=== PATIENT | female | born 1985 | race African-American/Black ===

== ENCOUNTER 2017-01-20 10:09 | Emergency (ER) | payer SELFPAY ==
[~2017-01-20 10:09] MED LIST: ISOVUE-370 76%-LOCM 1 ML ONE
[2017-01-20 10:36] LABS: #Lymphocytes 1.9 thou/uL (1.20-3.40); #Monocytes 0.4 thou/uL (0.11-0.59); #Neutrophils 12.4 thou/uL (1.40-6.50); %Basophils 0.2 % (0.0-1.0); %Eosinophils 0.3 % (0.0-10.0); %Lymphocytes 12.7 % (21.0-51.0); %Monocytes 2.8 % (0.0-10.0); Hematocrit 42.2 % (36.0-47.0); Mean Platelet Volume 6.6 fL (7.4-10.4); Red Blood Cell (RBC) Count 4.02 mill/uL (4.20-5.40); White Blood Cell (WBC) Count 14.8 thou/uL (4.8-10.8)
[2017-01-20 10:59] LABS: ALT (SGPT) 10 U/L (8-55); AST (SGOT) 12 U/L (5-34); Alkaline Phosphatase 61 U/L (40-150); Anion Gap 12 mmol/L (10-20); BUN (Urea Nitrogen) 9 mg/dL (7.0-18.7); Bilirubin, Total 0.6 mg/dL (0.2-1.2); Calc. Creatinine Clearance 0 mL/min (70-130); Carbon Dioxide 22 mmol/L (22-29); Chloride 98 mmol/L (98-107); Estimated GFR-MDRD 83; Globulin 3.2 g/dL (2.4-3.5); Lipase 10 U/L (8-78); Protein, Total 6.5 g/dL (6.0-8.3)
[2017-01-20 11:32] LABS: Bilirubin Negative (Negative); Blood, Urine Negative (Negative); Glucose, Urine (Dipstick) 500 mg/dL (Negative); Ketone, Urine Trace mg/dL (Negative); Nitrite Negative (Negative); Protein, Urine (Dipstick) Negative (Neg-Trace)
[2017-01-20] MEDS ORDERED: Morphine 4 MG/ML VIAL ONE (11:58)
[2017-01-20] MEDS ORDERED: Ketorolac Tromethamine 30 MG/ML VIAL ONE (11:58)
--- NOTE | 2017-01-20 12:50 | CT ---
CT ABDOMEN AND PELVIS WITH IV CONTRAST: HISTORY: Abdominal pain. FINDINGS: No comparison. The lung bases are clear. The liver, spleen, kidneys, adrenal glands, and pancreas h ave a normal CT appearance. Nonspecific lymph nodes are scattered throughout the retroperitoneum. Lack of oral contrast limits evaluation of the bowel. There is no evidence of obstruction or appendi ceal inflammation. Follicles arise from each ovary with a small amount of free fluid in the dependen t portion of the pelvis. IMPRESSION: No significant abnormalities are demonstrated. POS: [facility]
--- NOTE | 2017-01-20 13:47 | ULT ---
PELVIC ULTRASOUND: Date: 01/20/17 Transabdominal and endovaginal ultrasound of pelvis performed. HISTORY: Pelvic pain. FINDINGS: Uterus appears unremarkable. Uterine measurements were recorded at 8.7 x 4.7 x 5[address] ripe upper normal measured at 6-8 mm. Both ovaries are identified. There are small follicular cysts seen bilaterally measuring 1.0-1.5 cm. Color Doppler with spectral analysis demonstrates blood flow to both ovaries. IMPRESSION: Unremarkable pelvic ultrasound. POS: [facility]
== END 2017-01-20 14:20 | disposition home or self-care (01) ==
LOC: ERS 10:09
DX: R10.30 Lower abdominal pain, unspecified (principal); F17.210 Nicotine dependence, cigarettes, uncomplicated
CPT/HCPCS: 36415; 74177; 76856; 80053; 81003; 83690; 84703; 85025; 96374; 96375; J1885; J2270

== ENCOUNTER 2017-04-27 09:15 | Emergency (ER) | payer BC, SELFPAY ==
[2017-04-27] MEDS ORDERED: HYDROcodone/Acetaminophen 10/325 mg Tablet ONE (09:49)
== END 2017-04-27 10:31 | disposition home or self-care (01) ==
LOC: ERS 09:15
DX: T81.4XXA Infection following a procedure, initial encounter (principal); K08.89 Other specified disorders of teeth and supporting structures; F17.210 Nicotine dependence, cigarettes, uncomplicated
CPT/HCPCS: 99282

== ENCOUNTER 2017-06-02 17:25 | Emergency (ER) | payer BC ==
[2017-06-02] MEDS ORDERED: diphenhydrAMINE 25 MG CAP ONE (18:14)
[2017-06-02] MEDS ORDERED: predniSONE 20 MG TAB ONE (18:14)
== END 2017-06-02 18:24 | disposition home or self-care (01) ==
LOC: SCSER 17:25
DX: L25.9 Unspecified contact dermatitis, unspecified cause (principal); F17.210 Nicotine dependence, cigarettes, uncomplicated
CPT/HCPCS: 99282; J7506

== ENCOUNTER 2017-12-13 22:50 | Emergency (ER) | payer BC, SELFPAY ==
--- NOTE | 2017-12-13 23:29 | RAD ---
CHEST TWO VIEWS: 12/13/17 INDICATION: Cough. Congestion, sore throat. COMPARISON: None. FINDINGS: Lungs are clear. Cardiomediastinal silhouette is normal. No acute osseous abnormality is evident. IMPRESSION: No acute cardiopulmonary abnormality. POS: [facility]
== END 2017-12-13 23:38 | disposition home or self-care (01) ==
LOC: ERS 22:50
DX: J30.9 Allergic rhinitis, unspecified (principal); R05 Cough; F17.210 Nicotine dependence, cigarettes, uncomplicated; Z71.6 Tobacco abuse counseling
CPT/HCPCS: 71046; 99406

== ENCOUNTER 2018-05-09 15:40 | Emergency (ER) | payer SELFPAY ==
[2018-05-09] MEDS ORDERED: Ibuprofen 600 MG TAB ONE (17:16)
[2018-05-09] MEDS ORDERED: Dexamethasone 4 MG TAB ONE (17:16)
== END 2018-05-09 17:34 | disposition home or self-care (01) ==
LOC: SCSER 15:40
DX: J11.1 Influenza due to unidentified influenza virus with other respiratory manifestations (principal); F17.210 Nicotine dependence, cigarettes, uncomplicated
CPT/HCPCS: 99283; J8540

== ENCOUNTER 2018-06-04 10:34 | Emergency (ER) | payer SELFPAY ==
[2018-06-04] MEDS ORDERED: Bacitracin Zinc 1 Packet ONE (12:17)
== END 2018-06-04 12:32 | disposition home or self-care (01) ==
LOC: ERS 10:34
DX: S91.311D Laceration without foreign body, right foot, subsequent encounter (principal); F17.210 Nicotine dependence, cigarettes, uncomplicated

== ENCOUNTER 2020-03-01 19:28 | Emergency (ER) | payer SELFPAY ==
--- NOTE | 2020-03-01 19:54 | RAD ---
TWO VIEWS CHEST: 03/01/20 PROVIDED CLINICAL HISTORY: Chest pain. FINDINGS: Comparison 12/13/17. Cardiac and mediastinal silhouette is within normal limits. No focal consolidation, pleural fluid or pneumothorax apparent. IMPRESSION: No evidence for an acute cardiopulmonary process. POS: [facility]
== END 2020-03-01 22:00 | disposition home or self-care (01) ==
LOC: ERS 19:28
DX: S20.211A Contusion of right front wall of thorax, initial encounter (principal); W19.XXXA Unspecified fall, initial encounter
CPT/HCPCS: 71046

== ENCOUNTER 2020-08-12 11:29 | Emergency (ER) | payer SELFPAY ==
[2020-08-12] MEDS ORDERED: Ketorolac Tromethamine 30 MG/ML VIAL ONE (13:13)
== END 2020-08-12 13:33 | disposition home or self-care (01) ==
LOC: ERS 11:29
DX: M25.562 Pain in left knee (principal); F17.210 Nicotine dependence, cigarettes, uncomplicated
CPT/HCPCS: 96372; J1885

== ENCOUNTER 2020-12-21 13:54 | Emergency (ER) | payer SELFPAY ==
[2020-12-21 22:40] LABS: SARS-CoV-2 PCR by NAA Not Detected (NotDetected)
== END 2020-12-21 14:32 | disposition home or self-care (01) ==
LOC: ERS 13:54
DX: R51.9 Headache, unspecified (principal); R05.9 Cough, unspecified; Z20.822 Contact with and (suspected) exposure to COVID-19; F17.210 Nicotine dependence, cigarettes, uncomplicated
CPT/HCPCS: 99284; U0003; U0005

== ENCOUNTER 2021-09-17 08:59 | Emergency (ER) | payer SELFPAY ==
[2021-09-17 13:35] LABS: SARS-CoV-2 NAA Rapid Test DETECTED (NotDetected)
== END 2021-09-17 10:27 | disposition home or self-care (01) ==
LOC: ERS 08:59
DX: U07.1 COVID-19 (principal); H60.501 Unspecified acute noninfective otitis externa, right ear; H72.91 Unspecified perforation of tympanic membrane, right ear; F17.210 Nicotine dependence, cigarettes, uncomplicated
CPT/HCPCS: 99283; U0002

== ENCOUNTER 2022-01-31 15:50 | Emergency (ER) | payer SELFPAY | END 2022-01-31 18:37 | disposition home or self-care (01) | LOC: ERS 15:50 | DX: S70.12XA Contusion of left thigh, initial encounter (principal); M54.2 Cervicalgia; M62.838 Other muscle spasm; F17.210 Nicotine dependence, cigarettes, uncomplicated; W18.30XA Fall on same level, unspecified, initial encounter | CPT/HCPCS: 99283 ==

== ENCOUNTER 2022-05-22 23:01 | Emergency (ER) | payer SELFPAY ==
[2022-05-22 23:29] LABS: #Eosinphils 0.3 thou/uL (0.0-0.7); #Lymphocytes 2.2 thou/uL (1.20-3.40); #Monocytes 0.5 thou/uL (0.11-0.59); #Neutrophils 2.5 thou/uL (1.40-6.50); %Basophils 0.8 % (0.0-1.0); %Lymphocytes 39.8 % (21.0-51.0); %Neutrophils 45.4 % (42.0-75.0); Hemoglobin 12.9 g/dL (12.0-16.0); Mean Corpuscular HGB CONC 32.8 g/dL (32.0-36.0); Mean Corpuscular Hemoglobin 33.1 pg (27.0-31.0); Mean Platelet Volume 6.7 fL (7.4-10.4); Platelet Count 503 10x3/uL (130-400); RBC Distribution Width 12.8 % (11.5-14.5); Red Blood Cell (RBC) Count 3.91 mill/uL (4.20-5.40); White Blood Cell (WBC) Count 5.5 10x3/uL (4.8-10.8)
[2022-05-22 23:54] LABS: Bilirubin Negative (Negative); Blood, Urine Negative (Negative); Clarity Clear (Clear); Glucose, Urine (Dipstick) Normal (Negative); Ketone, Urine Negative (Negative); Leukocyte Negative Leu/uL (Negative); Nitrite Negative (Negative); Pregnancy Test - Urine (BHCG) Negative (Negative); Pregu Control Background? CLEAR/WHITE (CLR/WHITE); Pregu Control Bar Appear? YES (CONTROL BAR); Protein, Urine (Dipstick) Negative (Neg-Trace); Urobilinogen Normal mg/dL (Less than 2)
[2022-05-23] LABS: ALT (SGPT) 19 U/L (8-55); AST (SGOT) 23 U/L (5-34); Albumin 3.5 g/dL (3.5-5.0); Alkaline Phosphatase 64 U/L (40-110); Anion Gap 12 mmol/L (10-20); BUN (Urea Nitrogen) 8 mg/dL (7.0-18.7); Bilirubin, Total 0.2 mg/dL (0.2-1.2); Calc. Creatinine Clearance 0 mL/min (70-130); Calcium 8.8 mg/dL (7.8-10.44); Carbon Dioxide 23 mmol/L (22-29); Chloride 108 mmol/L (98-107); Estimated GFR 89; Globulin 3.1 g/dL (2.4-3.5); Glucose 89 mg/dL (70-105); Potassium 3.9 mmol/L (3.5-5.1); Protein, Total 6.6 g/dL (6.0-8.3); Sodium 139 mmol/L (136-145)
[2022-05-23 00:12] LABS: BHCG - Serum Negative (NEGATIVE); Pregs Control Background? CLEAR/WHITE (CLR/WHITE); Pregs Control Bar Appear? YES (CONTROL BAR)
[2022-05-23] MEDS ORDERED: Dicyclomine 20 MG/2 ML VIAL ONE (01:45)
[2022-05-23] MEDS ORDERED: cefTRIAXone (ROCEPHIN) 500 MG VIAL ONE (01:58)
[2022-05-23] MEDS ORDERED: Lidocaine 1% MPF 2 ML VIAL ONE (01:58)
[2022-05-23 12:53] LABS: Chlamydia by PCR Not Detected (NotDetected); GC by PCR DETECTED (NotDetected)
== END 2022-05-23 02:26 | disposition home or self-care (01) ==
LOC: ERS 23:01
DX: Z11.3 Encounter for screening for infections with a predominantly sexual mode of transmission (principal)
CPT/HCPCS: 36415; 76856; 80053; 81003; 81025; 84703; 85025; 87480; 87491; 87510; 87591; 87660; 93976; 96372; 99283; J0696

== ENCOUNTER 2022-10-06 20:23 | Emergency (ER) | payer BC, SELFPAY ==
[2022-10-06] MEDS ORDERED: Ketorolac Tromethamine 30 MG/ML VIAL ONE (20:37)
== END 2022-10-06 20:56 | disposition home or self-care (01) ==
LOC: ERS 20:23
DX: M62.838 Other muscle spasm (principal); F17.210 Nicotine dependence, cigarettes, uncomplicated
CPT/HCPCS: 96372; 99283; J1885

== ENCOUNTER 2022-10-30 12:58 | Emergency (ER) | payer BC | END 2022-10-30 14:21 | disposition home or self-care (01) | LOC: ERS 12:58 | DX: M25.562 Pain in left knee (principal); F17.210 Nicotine dependence, cigarettes, uncomplicated ==

== ENCOUNTER 2022-11-10 12:36 | Emergency (ER) | payer BC ==
[2022-11-10] MEDS ORDERED: Lidocaine 1% PF 5 ML VIAL ONE (13:04)
[2022-11-10] MEDS ORDERED: Azithromycin 250 MG TAB ONE (13:04)
[2022-11-10] MEDS ORDERED: cefTRIAXone (ROCEPHIN) 500 MG VIAL ONE (13:04)
[2022-11-10 13:12] LABS: Bacteria/HPF 4+ HPF (None Seen); Bilirubin Negative (Negative); Blood, Urine Negative (Negative); CAUTI Indications for Culture Acute Hematuria; Clarity Turbid (Clear); Glucose, Urine (Dipstick) Normal (Negative); Ketone, Urine Negative (Negative); Leukocyte 250 Leu/uL (Negative); Nitrite Negative (Negative); Protein, Urine (Dipstick) 20 mg/dL (Neg-Trace); RBC/HPF 0-3 HPF (0-3); Specific Gravity, Urine 1.026 (1.002-1.036); Squamous Epithelial 0-3 HPF (0-3); Urobilinogen Normal mg/dL (Less than 2); WBC/HPF 21-50 HPF (0-3)
[2022-11-10 13:28] LABS: Urine Culture Reflex Yes Yes
[2022-11-10 13:29] LABS: Pregnancy Test - Urine (BHCG) Negative (Negative); Pregu Control Background? CLEAR/WHITE (CLR/WHITE); Pregu Control Bar Appear? YES (CONTROL BAR); Specific Gravity 1.026 (1.002-1.036)
[2022-11-10 22:56] LABS: Chlamydia by PCR, Vaginal Swab Not Detected (NotDetected); GC by PCR, Vaginal Swab Not Detected (NotDetected)
== END 2022-11-10 13:32 | disposition home or self-care (01) ==
LOC: ERS 12:36
DX: N76.0 Acute vaginitis (principal); N39.0 Urinary tract infection, site not specified; F17.210 Nicotine dependence, cigarettes, uncomplicated
CPT/HCPCS: 81001; 81025; 87077; 87086; 87186; 87480; 87491; 87510; 87591; 87660; 96372; 99284; J0696

== ENCOUNTER 2023-02-20 15:19 | Emergency (ER) | payer BC, OTHER ==
[2023-02-20 16:59] LABS: SARS-CoV-2 NAA Rapid Test Not Detected (NotDetected)
[2023-02-20 19:52] LABS: Bacteria/HPF None Seen HPF (None Seen); Bilirubin Negative (Negative); Blood, Urine Negative (Negative); CAUTI Indications for Culture Pelvic or flank pain; Clarity Clear (Clear); Glucose, Urine (Dipstick) Normal (Negative); Ketone, Urine Negative (Negative); Leukocyte Negative Leu/uL (Negative); Nitrite Negative (Negative); Pregnancy Test - Urine (BHCG) Negative (Negative); Pregu Control Background? CLEAR/WHITE (CLR/WHITE); Pregu Control Bar Appear? YES (CONTROL BAR); Protein, Urine (Dipstick) Negative (Neg-Trace); RBC/HPF 0-3 HPF (0-3); Specific Gravity 1.004 (1.002-1.036); Specific Gravity, Urine 1.004 (1.002-1.036); Squamous Epithelial 0-3 HPF (0-3); Urine Culture Reflex No No; Urobilinogen Normal mg/dL (Less than 2); WBC/HPF 0-3 HPF (0-3); pH, Urine 6.5 (5.0-9.0)
[2023-02-21 14:01] LABS: Chlamydia by PCR, Vaginal Swab Not Detected (NotDetected); GC by PCR, Vaginal Swab Not Detected (NotDetected)
== END 2023-02-20 18:53 | disposition home or self-care (01) ==
LOC: ERS 15:19
DX: J18.9 Pneumonia, unspecified organism (principal); F17.210 Nicotine dependence, cigarettes, uncomplicated
CPT/HCPCS: 71045; 81001; 81025; 87480; 87491; 87510; 87591; 87660

== ENCOUNTER 2023-04-03 13:01 | Emergency (ER) | payer BC, SELFPAY ==
[2023-04-03 13:57] LABS: SARS-CoV-2 NAA Rapid Test Not Detected (NotDetected)
== END 2023-04-03 14:44 | disposition home or self-care (01) ==
LOC: ERS 13:01
DX: J10.1 Influenza due to other identified influenza virus with other respiratory manifestations (principal); F17.210 Nicotine dependence, cigarettes, uncomplicated
CPT/HCPCS: 99284

== ENCOUNTER 2023-07-18 11:29 | Emergency (ER) | payer OTHER ==
[2023-07-18 12:36] LABS: #Basophils 0.05 10x3/uL (0.0-0.2); %Basophils 0.9 % (0.0-1.0); %Eosinophils 2.6 % (0.0-10.0); %Monocytes 10.1 % (0.0-10.0); %Neutrophils 56.1 % (42.0-75.0); Hematocrit 40.4 % (36.0-47.0); Hemoglobin 13.4 g/dL (12.0-16.0); Mean Corpuscular HGB CONC 33.2 g/dL (32.0-36.0); Mean Corpuscular Hemoglobin 32.5 pg (27.0-31.0); Mean Corpuscular Volume 98.1 fL (78.0-98.0); Mean Platelet Volume 9.4 fL (7.4-10.4); Platelet Count 476 10x3/uL (130-400); Red Blood Cell (RBC) Count 4.12 mill/uL (4.20-5.40)
[2023-07-18 12:56] LABS: ALT (SGPT) 12 U/L (8-55); AST (SGOT) 19 U/L (5-34); Albumin 2.6 g/dL (3.5-5.0); Alkaline Phosphatase 42 U/L (40-110); Anion Gap 10 mmol/L (10-20); BUN (Urea Nitrogen) 16 mg/dL (7.0-18.7); Bilirubin, Total 0.2 mg/dL (0.2-1.2); Calc. Creatinine Clearance 0 mL/min (70-130); Carbon Dioxide 19 mmol/L (22-29); Chloride 114 mmol/L (98-107); Estimated GFR 79; Globulin 2.5 g/dL (2.4-3.5); Glucose 89 mg/dL (70-105); Potassium 3.6 mmol/L (3.5-5.1); Protein, Total 5.1 g/dL (6.0-8.3); Sodium 139 mmol/L (136-145)
[2023-07-18 13:53] LABS: Bacteria/HPF None Seen HPF (None Seen); Bilirubin Negative (Negative); Blood, Urine Negative (Negative); CAUTI Indications for Culture Dysuria,urgency,freq; Clarity Clear (Clear); Glucose, Urine (Dipstick) Normal (Negative); Ketone, Urine Negative (Negative); Leukocyte Negative Leu/uL (Negative); Nitrite Negative (Negative); Protein, Urine (Dipstick) Negative (Neg-Trace); RBC/HPF 0-3 HPF (0-3); Specific Gravity, Urine 1.015 (1.002-1.036); Squamous Epithelial 0-3 HPF (0-3); Urobilinogen Normal mg/dL (Less than 2); WBC/HPF 0-3 HPF (0-3)
[2023-07-18 13:55] LABS: Pregnancy Test - Urine (BHCG) Negative (Negative); Pregu Control Background? CLEAR/WHITE (CLR/WHITE); Pregu Control Bar Appear? YES (CONTROL BAR); Specific Gravity 1.015 (1.002-1.036); Urine Culture Reflex No No
== END 2023-07-18 14:55 | disposition home or self-care (01) ==
LOC: ERS 11:29
DX: R10.33 Periumbilical pain (principal); F17.210 Nicotine dependence, cigarettes, uncomplicated
CPT/HCPCS: 36415; 80053; 81001; 81025; 85025; 99283

== ENCOUNTER 2023-11-30 16:14 | Emergency (ER) | payer OTHER ==
[2023-11-30 17:06] LABS: Bilirubin Negative (Negative); Blood, Urine Negative (Negative); CAUTI Indications for Culture Acute Hematuria; Clarity Clear (Clear); Glucose, Urine (Dipstick) Normal (Negative); Ketone, Urine Negative (Negative); Leukocyte Negative Leu/uL (Negative); Nitrite Negative (Negative); Protein, Urine (Dipstick) Negative (Neg-Trace); RBC/HPF None Seen HPF (0-3); Specific Gravity, Urine 1.012 (1.002-1.036); Squamous Epithelial 0-3 HPF (0-3); Urobilinogen Normal mg/dL (Less than 2); WBC/HPF 0-3 HPF (0-3); pH, Urine 7.5 (5.0-9.0)
[2023-11-30 17:12] LABS: Bacteria/HPF 1+ HPF (None Seen)
[2023-11-30 17:13] LABS: Pregnancy Test - Urine (BHCG) Negative (Negative); Pregu Control Background? CLEAR/WHITE (CLR/WHITE); Pregu Control Bar Appear? YES (CONTROL BAR); Specific Gravity 1.012 (1.002-1.036); Urine Culture Reflex No No
[2023-11-30 23:21] LABS: Chlam.trachomatis by PCR,Urine Not Detected (NotDetected); GC N.gonorrhoeae PCR,UrineVOID Not Detected (NotDetected)
== END 2023-11-30 17:53 | disposition home or self-care (01) ==
LOC: ERS 16:14
DX: N76.0 Acute vaginitis (principal); F17.210 Nicotine dependence, cigarettes, uncomplicated
CPT/HCPCS: 81001; 81025; 87480; 87491; 87510; 87591; 87660; 99284

== ENCOUNTER 2024-01-07 01:09 | Emergency (ER) | payer OTHER ==
[2024-01-07 01:45] LABS: Bacteria/HPF None Seen HPF (None Seen); Bilirubin Negative (Negative); Blood, Urine Negative (Negative); CAUTI Indications for Culture Pelvic or flank pain; Clarity Clear (Clear); Glucose, Urine (Dipstick) Normal (Negative); Ketone, Urine Negative (Negative); Leukocyte Negative Leu/uL (Negative); Nitrite Negative (Negative); Protein, Urine (Dipstick) Negative (Neg-Trace); RBC/HPF 0-3 HPF (0-3); Specific Gravity, Urine 1.001 (1.002-1.036); Squamous Epithelial 0-3 HPF (0-3); Urobilinogen Normal mg/dL (Less than 2); WBC/HPF 0-3 HPF (0-3); pH, Urine 5.5 (5.0-9.0)
[2024-01-07 01:47] LABS: Pregnancy Test - Urine (BHCG) Negative (Negative); Pregu Control Background? CLEAR/WHITE (CLR/WHITE); Pregu Control Bar Appear? YES (CONTROL BAR); Specific Gravity 1.001 (1.002-1.036)
[2024-01-07 01:48] LABS: Urine Culture Reflex No No
[2024-01-07 05:35] LABS: Chlamydia by PCR, Vaginal Swab Not Detected (NotDetected); GC by PCR, Vaginal Swab Not Detected (NotDetected)
== END 2024-01-07 03:18 | disposition home or self-care (01) ==
LOC: ERS 01:09
DX: N76.0 Acute vaginitis (principal); F17.210 Nicotine dependence, cigarettes, uncomplicated
CPT/HCPCS: 81001; 81025; 87480; 87491; 87510; 87591; 87660; 99283

== ENCOUNTER 2024-02-09 16:16 | Emergency (ER) | payer OTHER ==
[2024-02-09] MEDS ORDERED: Ibuprofen 800 MG TAB ONE (16:36)
[2024-02-09] MEDS ORDERED: Acetaminophen 500 MG TAB ONE (16:36)
== END 2024-02-09 17:56 | disposition home or self-care (01) ==
LOC: ERS 16:16
DX: B34.9 Viral infection, unspecified (principal); F17.210 Nicotine dependence, cigarettes, uncomplicated
CPT/HCPCS: 87428; 99283

== ENCOUNTER 2024-02-16 19:39 | Emergency (ER) | payer OTHER ==
[2024-02-16 21:02] LABS: #Basophils 0.07 10x3/uL (0.0-0.2); %Basophils 1.1 % (0.0-1.0); %Eosinophils 1.8 % (0.0-10.0); %Lymphocytes 31.6 % (21.0-51.0); %Monocytes 9.3 % (0.0-10.0); Hematocrit 36.5 % (36.0-47.0); Hemoglobin 12.3 g/dL (12.0-16.0); Mean Corpuscular HGB CONC 33.7 g/dL (32.0-36.0); Mean Corpuscular Hemoglobin 32.3 pg (27.0-31.0); Mean Corpuscular Volume 95.8 fL (78.0-98.0); Platelet Count 452 10x3/uL (130-400); RBC Distribution Width 13.2 % (11.5-14.5); Red Blood Cell (RBC) Count 3.81 mill/uL (4.20-5.40)
[2024-02-16] MEDS ORDERED: Ondansetron ODT 4 MG TAB ONE (21:02)
[2024-02-16] MEDS ORDERED: Dicyclomine 20 MG/2 ML VIAL ONE (21:05)
[2024-02-16 21:12] LABS: Anion Gap 9 mmol/L (10-20); BUN (Urea Nitrogen) 7 mg/dL (7.0-18.7); Calc. Creatinine Clearance 0 mL/min (70-130); Calcium 8.7 mg/dL (7.8-10.44); Carbon Dioxide 27 mmol/L (22-29); Chloride 107 mmol/L (98-107); Estimated GFR 105; Glucose 89 mg/dL (70-105); Sodium 139 mmol/L (136-145)
[2024-02-16 21:41] LABS: Bacteria/HPF 1+ HPF (None Seen); Bilirubin Negative (Negative); Blood, Urine Negative (Negative); CAUTI Indications for Culture Pelvic or flank pain; Clarity Clear (Clear); Glucose, Urine (Dipstick) Normal (Negative); Ketone, Urine Negative (Negative); Leukocyte Negative Leu/uL (Negative); Nitrite Negative (Negative); Pregnancy Test - Urine (BHCG) Negative (Negative); Pregu Control Background? CLEAR/WHITE (CLR/WHITE); Pregu Control Bar Appear? YES (CONTROL BAR); Protein, Urine (Dipstick) Negative (Neg-Trace); RBC/HPF 0-3 HPF (0-3); Specific Gravity 1.004 (1.002-1.036); Specific Gravity, Urine 1.004 (1.002-1.036); Squamous Epithelial 0-3 HPF (0-3); Urine Culture Reflex No No; Urobilinogen Normal mg/dL (Less than 2); WBC/HPF 0-3 HPF (0-3)
[2024-02-16] MEDS ORDERED: Promethazine 25 MG TAB ONE (22:24)
== END 2024-02-16 22:37 | disposition home or self-care (01) ==
LOC: ERS 19:39
DX: K52.9 Noninfective gastroenteritis and colitis, unspecified (principal); F17.210 Nicotine dependence, cigarettes, uncomplicated; F17.290 Nicotine dependence, other tobacco product, uncomplicated
CPT/HCPCS: 36415; 80048; 81001; 81025; 85025; 96372; 99283; Q0162; Q0169

== ENCOUNTER 2024-12-10 09:14 | Emergency (ER) | payer SELFPAY ==
[2024-12-10 10:53] LABS: Bacteria/HPF 2+ HPF (None Seen); CAUTI Indications for Culture Dysuria,urgency,freq; Glucose, Urine (Dipstick) Normal (Negative); Leukocyte Negative Leu/uL (Negative); Protein, Urine (Dipstick) Negative (Neg-Trace); RBC/HPF 0-3 HPF (0-3); Specific Gravity, Urine 1.015 (1.002-1.036); WBC/HPF 0-3 HPF (0-3)
[2024-12-10 10:55] LABS: Urine Culture Reflex No No
[2024-12-10 14:20] LABS: Chlam.trachomatis by PCR,Urine Not Detected (NotDetected); GC N.gonorrhoeae PCR,UrineVOID Not Detected (NotDetected)
== END 2024-12-10 11:24 | disposition home or self-care (01) ==
LOC: ERS 09:14
DX: N76.0 Acute vaginitis (principal); F17.210 Nicotine dependence, cigarettes, uncomplicated; F17.290 Nicotine dependence, other tobacco product, uncomplicated
CPT/HCPCS: 81001; 87480; 87491; 87510; 87591; 87660; 99283